=== PATIENT | male | born 1985 | race Caucasian/White ===

== ENCOUNTER → 2017-12-11 | Outpatient (CLI) | payer OTHER ==
[~2017-12-11] MED LIST: FLON0.053; ZITH250T PO
--- NOTE | 2017-12-11 11:56 | RADRPT ---
EXAM DATE/TIME: 12/11/2017 10:40 [place] COMPARISON: No previous studies available for comparison. INDICATIONS : Chronic back pain. MEDICAL HISTORY : None. SURGICAL HISTORY : None. ENCOUNTER: Initial ACUITY: 7 - 11 months PAIN SCORE: 6/10 LOCATION: Bilateral lumbar spine FINDINGS: There are five non-rib bearing vertebral bodies. The vertebral bodies are in normal alignment withou t evidence of subluxation or scoliosis. The disc spaces are maintained. Probable pars defect L5-S1 the grade 1 spinal listhesis. MRI could be used to confirm.. Bony mineralization is normal. No fra cture is identified. CONCLUSION: Probable pars defect L5-S1. Oleksandr Ballard MD FACR on December 11, 2017 at 11:54 Board Certified Radiologist. This report was verified electronically.
== END ==
LOC: HRAD 10:16
PROVIDERS: ATTEND General Practice
DX: M54.5 Low back pain (principal); G89.29 Other chronic pain
CPT/HCPCS: 72110